=== PATIENT | male | born 1990 | race Caucasian/White ===

== ENCOUNTER 2018-10-30 06:46 | Emergency (ER) | payer OTHER ==
[~2018-10-30] VITALS: Ht 165.1 cm; Wt 61.2 kg
[~2018-10-30 06:46] MED LIST: AZITHROMYCIN 2250 MG PO; NOHOMEMEDICATIONS; NORCO 5-325 TA1 EACH PO; PEPCID40 MG PO; PREDNISONE 20 M20 M1 PO; PROMETHAZINE-D120 ML PO
[2018-10-30 06:59] VITALS: BP 122/76
[2018-10-30] MEDS ORDERED: ACETAMINOPHEN-1 EAC1 PO (07:13)
[2018-10-30] MEDS ORDERED: AMOXICILLIN 50500 M1 PO (07:13)
[2018-10-30] MEDS ORDERED: Magic Mouthwash SWISH&SPIT (07:13)
== END 2018-10-30 07:24 | disposition home or self-care (01) ==
LOC: M.ERS 06:46
DX: H66.92 Otitis media, unspecified, left ear (principal); J03.90 Acute tonsillitis, unspecified; J45.909 Unspecified asthma, uncomplicated

== ENCOUNTER 2019-03-01 17:09 | Emergency (ER) | payer OTHER ==
[~2019-03-01] VITALS: Ht 165.1 cm; Wt 59.0 kg
[~2019-03-01 17:09] MED LIST changes: +ACETAMINOPHEN-1 EAC1 PO; +AMOXICILLIN 50500 M1 PO; +Magic Mouthwash SWISH&SPIT
[2019-03-01] MEDS ORDERED: PENICILLIN VK500 M1 PO (17:49)
[2019-03-01] MEDS ORDERED: MEDROLDOSEPACK PO (17:49)
[2019-03-01 18:10] VITALS: BP 117/66
== END 2019-03-01 18:11 | disposition home or self-care (01) ==
LOC: M.ERS 17:09
DX: H92.02 Otalgia, left ear (principal); J02.9 Acute pharyngitis, unspecified; J45.909 Unspecified asthma, uncomplicated; F17.210 Nicotine dependence, cigarettes, uncomplicated

== ENCOUNTER 2019-11-28 22:59 | Emergency (ER) | payer OTHER | END 2019-11-29 01:44 | disposition home or self-care (01) | LOC: M.ERS 22:59 | DX: R06.00 Dyspnea, unspecified (principal); J45.909 Unspecified asthma, uncomplicated; F17.210 Nicotine dependence, cigarettes, uncomplicated ==

== ENCOUNTER 2020-08-24 18:02 | Emergency (ER) | payer OTHER ==
[~2020-08-24] VITALS: Ht 165.1 cm; Wt 72.6 kg
[~2020-08-24 18:02] MED LIST changes: +HYDROXYZINE HCL25 M2 PO; +MEDROLDOSEPACK PO; +PENICILLIN VK500 M1 PO; +PROAIR HFA8.5 GM INH
[2020-08-24 18:39] LABS: ABSOLUTE EOSINOPHILS 0.1 thou/uL (0.0-0.7); ABSOLUTE LYMPHOCYTES 1.7 thou/uL (0.8-5.3); BASOPHILS 0.2 %; EOSINOPHILS 1.5 %; HEMATOCRIT 47.4 % (42.0-52.0); LYMPHOCYTES 25.2 %; MCH 29.4 pg (26.0-34.0); MCHC 33.8 g/dL (28.0-37.0); MCV 87.2 fL (80.0-100.0); MONOCYTES 14.9 %; NUCLEATED RBCS 0 /100WBC; PLATELET COUNT* 201 thou/uL (150-400); POLYS 58.2 %; RBC 5.44 mil/uL (4.50-6.00); RDW-CV 13.1 % (10.5-14.5); WBC 6.9 thou/uL (4.0-11.0)
[2020-08-24 18:49] LABS: CALCIUM 8.6 mg/dL (8.5-10.1); POTASSIUM 3.9 mmol/L (3.5-5.1)
[2020-08-24 18:54] LABS: ALBUMIN 4.1 g/dL (3.4-5.0); TOTAL BILIRUBIN 0.4 mg/dL (<0.1-1.0); TOTAL PROTEIN 7.6 g/dL (6.4-8.2)
[2020-08-24 19:45] LABS: URINE BILIRUBIN NEGATIVE (Negative); URINE BLOOD TRACE (Negative); URINE CLARITY CLEAR; URINE COLOR YELLOW; URINE GLUCOSE-RANDOM NEGATIVE (Negative); URINE KETONES NEGATIVE (Negative); URINE LEUKOCYTES-REFLEX NEGATIVE (Negative); URINE NITRITE-REFLEX NEGATIVE (Negative); URINE PROTEIN NEGATIVE (Negative); URINE SPECIFIC GRAVITY >= 1.030 (1.005-1.030); URINE UROBILINOGEN 0.2 E.U./dl (0.2-1.0)
[2020-08-24] MEDS ORDERED: ONDANSETRON HCL4 M2 PO (19:55)
[2020-08-24 20:20] VITALS: BP 116/75
== END 2020-08-24 20:21 | disposition home or self-care (01) ==
LOC: M.ERS 18:02
PROVIDERS: Family Medicine
DX: R11.2 Nausea with vomiting, unspecified (principal); R19.7 Diarrhea, unspecified; R10.84 Generalized abdominal pain; J45.909 Unspecified asthma, uncomplicated; F17.210 Nicotine dependence, cigarettes, uncomplicated

== ENCOUNTER 2021-02-14 16:23 | Emergency (ER) | payer OTHER ==
[~2021-02-14] VITALS: Ht 165.1 cm; Wt 70.3 kg
[~2021-02-14 16:23] MED LIST changes: +ONDANSETRON HCL4 M2 PO
[2021-02-14] MEDS ORDERED: PREDNISONE 20 M20 M1 PO (17:39)
[2021-02-14] MEDS ORDERED: PROAIR HFA8.5 GM INH (17:39)
[2021-02-14 17:45] VITALS: BP 122/72
--- NOTE | 2021-02-15 14:44 | EKG ---
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[place] : 1990 Requested By: Bob Funk Order Number: [id number] MD: Herbert Kennedy Measurements Intervals Thayer Rate: 114 P: 50 OR: 130 QRS: 73 QRSD: 87 T: -15 QT: 305 QTc: 421 Interpretive Statements Sinus tachycardia Borderline repolarization abnormality Baseline wander in lead(s) III,aVF,V3 Compared to ECG 11/28/2019 23:04:04 ST (T wave) deviation no longer present Electronically Signed On 02-15-2021 14:43:56 CDT by Herbert Kennedy [email or web address] <ELECTRONICALLY SIGNED> By: Herbert Kennedy MD, [facility] 02/15/21 1443 1623 1623 Herbert Kennedy MD, [facility] /EPI
== END 2021-02-14 17:46 | disposition home or self-care (01) ==
LOC: M.ERS 16:23
DX: J45.901 Unspecified asthma with (acute) exacerbation (principal); Z20.822 Contact with and (suspected) exposure to COVID-19; F41.9 Anxiety disorder, unspecified; Z98.890 Other specified postprocedural states

== ENCOUNTER 2021-03-31 10:29 | Emergency (ER) | payer OTHER ==
[~2021-03-31] VITALS: Ht 165.1 cm; Wt 72.1 kg
[2021-03-31 11:14] LABS: INFLUENZA A ANTIGEN Negative (Negative); INFLUENZA B ANTIGEN Negative (Negative)
[2021-03-31] MEDS ORDERED: DECADRON6 MG PO (11:40)
[2021-03-31] MEDS ORDERED: PROAIR HFA8.5 GM INH (11:40)
[2021-03-31 11:56] VITALS: BP 131/70
== END 2021-03-31 11:56 | disposition home or self-care (01) ==
LOC: M.ERS 10:29
PROVIDERS: Physician Assistant
DX: U07.1 COVID-19 (principal); J45.909 Unspecified asthma, uncomplicated; F17.210 Nicotine dependence, cigarettes, uncomplicated